=== PATIENT | male | born 1980 | race Caucasian/White ===

== ENCOUNTER → 2016-07-23 | Outpatient (CLI) | payer OTHER ==
--- NOTE | 2016-07-23 16:04 | DIAGNOSTIC IMAGING REPORT ---
ABDOMEN AND PELVIS CT WITHOUT CONTRAST CT DOSE: 1787.43 mGy.cm HISTORY: Left-sided abdominal pain. TECHNIQUE: Multiaxial CT images of the abdomen and pelvis were performed without the use of intravenous and oral contrast according to the standard department stone protocol. COMPARISON STUDY: Renal ultrasound 07/23/2016. FINDINGS: There is a micronodular appearance to the lung bases. The unenhanced liver, gallbladder, spleen, adrenal glands, pancreas, and kidneys are unremarkable. No renal stones or hydronephrosis. Bladder is not well-distended but likely within normal limits. There are large left common and external iliac lymph nodes. Dominant left external iliac lymph node measures 2.8 x 1.6 cm. There are surgical clips within the left groin. Suboptimal evaluation for bowel pathology due to the lack of intravenous and oral contrast. However, there is no definite bowel wall thickening or obstruction. Normal appendix. IMPRESSION: 1. No renal stones or hydronephrosis. 2. No bowel wall thickening or obstruction. 3. Left common and external iliac lymphadenopathy. This is nonspecific but could be reactive or due to a neoplastic process. 4. Micronodular appearance to the lung bases. This favors a mild infectious bronchiolitis. Electronically signed by: Shaquille Phelps M.D. 07/23/2016 4:02 PM Dictated Date/Time: 07/23/2016 3:53 PM
== END | disposition home or self-care (01) ==
LOC: C.CTS 15:36
PROVIDERS: ATTEND Family Medicine
DX: N23 Unspecified renal colic (principal)

== ENCOUNTER → 2016-07-23 | Outpatient (CLI) | payer OTHER ==
--- NOTE | 2016-07-23 12:46 | DIAGNOSTIC IMAGING REPORT ---
RENAL ULTRASOUND HISTORY: Pain ABDOMINAL PAIN COMPARISON: None. FINDINGS: Right kidney: Maximum dimension 11.5 cm. No evidence for hydronephrosis. Normal corticomedullary differentiation and cortical thickness. Left kidney: Maximum dimension 12.0 cm. No evidence for hydronephrosis. Normal corticomedullary differentiation and cortical thickness. Bladder: No bladder wall thickening. The bilateral ureteral jets were identified. IMPRESSION: Normal renal ultrasound Electronically signed by: Hoang Olson M.D. 07/23/2016 12:44 PM Dictated Date/Time: 07/23/2016 12:43 PM
== END | disposition home or self-care (01) ==
LOC: C.ULTRBC 11:57
PROVIDERS: ATTEND Family Medicine
DX: N23 Unspecified renal colic (principal)

== ENCOUNTER → 2016-07-24 | Outpatient (CLI) | payer OTHER ==
--- NOTE | 2016-07-24 11:38 | DIAGNOSTIC IMAGING REPORT ---
CHEST CT WITHOUT CONTRAST CT DOSE: 388.86 mGy.cm HISTORY: Abnormal CT exam Bronchitis, tobacco SMOKER TECHNIQUE: Multiaxial CT images of the chest were performed without contrast. COMPARISON: CT abdomen dated 07/23/2016 FINDINGS: Lungs are essentially clear. There is a extremely subtle micronodular appearance to the lung bases possibly postinflammatory. This does not appear to be of significance. There is minimal reticular nodular changes right midlung laterally transaxial image 23. Atelectatic and/or potential diffuse groundglass density is considered. This measures no more than 7 mm. No additional areas of suspicion are present. There is no significant mediastinal or hilar adenopathy. IMPRESSION: 1. Minimal basilar micronodularity of doubtful significance. 2. Low suspicion subtle groundglass density right midlung laterally. A [address] follow-up is suggested Electronically signed by: Hoang Olson M.D. 07/24/2016 11:37 AM Dictated Date/Time: 07/24/2016 11:33 AM
== END | disposition home or self-care (01) ==
LOC: C.CTS 11:22
PROVIDERS: ATTEND Family Medicine
DX: J21.9 Acute bronchiolitis, unspecified (principal); F17.200 Nicotine dependence, unspecified, uncomplicated; R91.8 Other nonspecific abnormal finding of lung field

== ENCOUNTER → 2017-03-30 | Outpatient (CLI) | payer OTHER ==
--- NOTE | 2017-03-30 12:51 | EXERCISE STRESS ECHO ---
*NOTICE TO RECEIVING [employer] This information is strictly Confidential and protected under [place] law. [place] law prohibits you from making any further disclosure of this information unless further disclosure is expressly permitted by the written consent of the person to whom it pertains or is authorized by law. A general authorization for the release of medical or other information is not sufficient for this purpose. Hospital accepts no responsibility if the information is made available to any other person, INCLUDING THE PATIENT. Interpretation Summary * Name: GRISELDA BECERRA Study Date: 03/30/2017 10:43 AM BP: 125/71 mmHg * Patient Location: [facility] HR: 56 * : 1980 (M/d/yyyy) Gender: Male Height: 74 in * Age: 36 yrs Ethnicity: [place] Weight: 225 lb * Ordering Physician: Brett Gage * Referring Physician: Brett Gage. * Performed By: Mimi Arriaza RDCS * * Reason For Study: ATHEROSCLEROSIS OF [place] CORONARY ARTERY WITHOUT ANGINA PECTORIS * BSA: 2.3 m2 * -- Conclusions -- * Left ventricular systolic function is normal. * There is mild to moderate mitral regurgitation. * Right ventricular systolic pressure is normal. * Normal exercise echocardiogram without evidence of inducible ischemia * Hypertensive response to exercise Procedure Details * ECHOEX, CPT #87992 * A contrast injection of Definity was performed to improve assessment of LV function. * Contrast was injected into an intravenous site in the left arm. * One vial of Definity ultrasound contrast was diluted in normal saline to a total volume of 10 ml. A total of '4' ml of solution was administered during imaging. * Lot # [id number] of Definity utilized for procedure. * Expiration date MAY 03. * The attending nurse who injected the contrast agent was LUIS ARMANDO MAST RN. Left Ventricular Findings with Stress * Normal exercise echocardiogram without evidence of inducible ischemia Hypertensive response to exercise Left Ventricle * The left ventricle is normal in size. * There is normal left ventricular wall thickness. * Ejection Fraction = 55-60%. * Left ventricular systolic function is normal. * Normal diastolic function * The left ventricular wall motion is normal. Right Ventricle * The right ventricle is normal in size and function. Atria * The left atrial size is normal. * Right atrial size is normal. Mitral Valve * The mitral valve anatomy is normal. * There is mild to moderate mitral regurgitation. * The mitral regurgitant jet is eccentrically directed. * The mitral regurgitant jet is posteriorly directed, which is consistent with anterior leaflet pathology. Tricuspid Valve * The tricuspid valve anatomy is normal. * There is trace tricuspid regurgitation. * Right ventricular systolic pressure is normal. Aortic Valve * Some sclerosis involving the right coronary cusp, otherwise normal * The aortic valve is trileaflet. * No hemodynamically significant valvular aortic stenosis. * There is no significant aortic regurgitation. Great Vessels * The aortic root is normal size. Pericardium * There is no pericardial effusion. Stress Parameters * Normal baseline electrocardiogram. * Stress ECG: No ST changes. No arrhythmias. * Rest heart rate was '56' BPM. * Rest blood pressure was '125/71' * Maximum heart rate achieved was 153 bpm. * Maximum heart rate was 84 % of maximum age-predicted heart rate. * Maximum blood pressure was '194/63' * Total exercise time was '12:28' * Maximum exercise MET level achieved was '14.20' METS * Maximum treadmill speed was '5.00' miles per hour. * Maximum treadmill elevation was '18.00'% grade. Left Ventricular Findings with Stress * Baseline EKG was normal There are no significant ST or T-wave changes noted during exercise or recovery Baseline echocardiographic images were normal There was normal augmentation of all bermeo during exercise without development of wall motion abnormalities No symptoms reported during the test Blood pressure response was hypertensive MMode 2D Measurements and Calculations IVSd 0.94 cm IVSs 1.3 cm LVIDd 5.0 cm LVIDs 3.5 cm LVPWd 1.1 cm LVPWs 1.8 cm IVS/LVPW 0.86 FS 30.2 % EDV(Teich) 116.2 ml ESV(Teich) 49.6 ml EF(Teich) 57.3 % EDV(cubed) 122.3 ml ESV(cubed) 41.5 ml EF(cubed) 66.0 % % IVS thick 41.2 % % LVPW thick 66.4 % LV mass(C)d 184.5 grams LV mass(C)dI 80.8 grams/m\S\2 LV mass(C)s 207.2 grams LV mass(C)sI 90.7 grams/m\S\2 SV(Teich) 66.6 ml SI(Teich) 29.2 ml/m\S\2 SV(cubed) 80.7 ml SI(cubed) 35.3 ml/m\S\2 Ao root diam 3.1 cm Ao root area 7.5 cm\S\2 LA dimension 3.3 cm LA/Ao 1.1 LVAd ap4 31.8 cm\S\2 LVLd ap4 9.0 cm EDV(MOD-sp4) 96.8 ml EDV(sp4-el) 95.9 ml LVAs ap4 18.9 cm\S\2 LVLs ap4 7.8 cm ESV(MOD-sp4) 39.0 ml ESV(sp4-el) 38.9 ml EF(MOD-sp4) 59.7 % EF(sp4-el) 59.4 % LVAd ap2 36.2 cm\S\2 LVLd ap2 9.3 cm EDV(MOD-sp2) 117.7 ml EDV(sp2-el) 120.3 ml LVAs ap2 22.5 cm\S\2 LVLs ap2 8.3 cm ESV(MOD-sp2) 51.4 ml ESV(sp2-el) 51.5 ml EF(MOD-sp2) 56.4 % EF(sp2-el) 57.2 % LVLd %diff 3.2 % EDV(MOD-bp) 109.1 ml LVLs %diff 6.5 % ESV(MOD-bp) 46.4 ml EF(MOD-bp) 57.5 % SV(MOD-sp4) 57.8 ml SI(MOD-sp4) 25.3 ml/m\S\2 SV(MOD-sp2) 66.3 ml SI(MOD-sp2) 29.0 ml/m\S\2 SV(MOD-bp) 62.7 ml SI(MOD-bp) 27.5 ml/m\S\2 SV(sp4-el) 57.0 ml SI(sp4-el) 24.9 ml/m\S\2 SV(sp2-el) 68.8 ml SI(sp2-el) 30.1 ml/m\S\2 Doppler Measurements and Calculations MV E max lorena 72.1 cm/sec MV A max lorena 39.3 cm/sec MV E/A 1.8 MV dec time 0.37 sec Ao V2 max 111.3 cm/sec Ao max PG 5.0 mmHg Ao max PG (full) 1.1 mmHg LV V1 max PG 3.9 mmHg LV V1 max 98.2 cm/sec TR max lorena 193.6 cm/sec
== END | disposition home or self-care (01) ==
LOC: C.CPL 09:21
PROVIDERS: ATTEND Internal Medicine Cardiovascular Disease
DX: E78.5 Hyperlipidemia, unspecified (principal); I25.10 Atherosclerotic heart disease of native coronary artery without angina pectoris; R07.9 Chest pain, unspecified